=== PATIENT | female | born 1945 | race Caucasian/White ===

== ENCOUNTER → 2022-07-14 | Outpatient (CLI) | payer MEDICARE | END | disposition home or self-care (01) | LOC: LAB 11:49 → LAB SHORT 11:49 | DX: R30.9 Painful micturition, unspecified (principal) | CPT/HCPCS: 87086 ==

== ENCOUNTER 2025-09-25 06:28 | Day surgery (SDC) | payer MEDICARE ==
[~2025-09-25] VITALS: Ht 172.7 cm; Wt 62.4 kg
[~2025-09-25 06:28] MED LIST: Balanced Salt Epinephrine Irrigation Solution 500 mL IR SCH; Moxifloxacin HCL 0.5 MG/0.1 ML 0.4MLSYR LEFTEYE SCH; Ondansetron 4 MG SoluTab MM PRN; PHENYLEPHRINE\\TROPICAMIDE\\TETRACAINE OPHTHALMIC DILATING SOLN LEFTEYE PRN; Povidone-Iodine 450 DROP/30 ML Solution LEFTEYE SCH; Povidone-Iodine 450 DROP/30 ML Solution ONE; Tetracaine HCl/Pf 0.5% Opth Soln 4 ml ONE
[2025-09-25] MEDS ORDERED: ATOR10 (06:46)
[2025-09-25] MEDS ORDERED: TIMDOROPSO (06:46)
[2025-09-25] MEDS ORDERED: CALCIUM 600 MG1 EA18 (06:47)
[2025-09-25] MEDS ORDERED: LATA.005SO (06:47)
[2025-09-25] MEDS ORDERED: VITAMIN D325 MC3 (06:47)
[2025-09-25] MEDS ORDERED: Aspir 8181 MG (06:48)
[2025-09-25] MEDS ORDERED: PROBIOTIC1 EA13 (06:49)
[2025-09-25] MEDS ORDERED: MAGNESIUM (06:49)
--- NOTE | 2025-09-25 06:56 | NUR ---
09/25/25 0656 Padmini Buchanan PT STATES ANXIETY LEVEL IN PREOP IS 4/10 CALL LIGHT IN HAND PT IS ON CONTINUOUS PULSE OX MONITORING
--- NOTE | 2025-09-25 08:01 | NUR ---
09/25/25 0801 Marifer Neri 0800 BP:114/65 HR:57 O2:100% RESP:16
[2025-09-25 08:16] VITALS: BP 106/63
== END 2025-09-25 08:30 | disposition home or self-care (01) ==
LOC: ORSCSDS 06:28
PROVIDERS: Student in an Organized Health Care Education/Training Program
PROC: 08RK3JZ Replacement of Left Lens with Synthetic Substitute, Percutaneous Approach (ICD-10-PCS; principal; 2025-09-25 08:00)
DX: H25.813 Combined forms of age-related cataract, bilateral (principal); H40.1221 Low-tension glaucoma, left eye, mild stage; H40.1212 Low-tension glaucoma, right eye, moderate stage; Z86.73 Personal history of transient ischemic attack (TIA), and cerebral infarction without residual deficits; Z79.82 Long term (current) use of aspirin; Z79.899 Other long term (current) drug therapy
CPT/HCPCS: A9270; V2632

== ENCOUNTER 2025-10-02 12:25 | Day surgery (SDC) | payer MEDICARE ==
[~2025-10-02] VITALS: Ht 172.7 cm; Wt 63.2 kg
[~2025-10-02 12:25] MED LIST changes: +ATOR10; +Aspir 8181 MG; +CALCIUM 600 MG1 EA18; +LATA.005SO; +MAGNESIUM; -Moxifloxacin HCL 0.5 MG/0.1 ML 0.4MLSYR LEFTEYE SCH; +Moxifloxacin HCL 0.5 MG/0.1 ML 0.4MLSYR RIGHTEYE SCH; -PHENYLEPHRINE\\TROPICAMIDE\\TETRACAINE OPHTHALMIC DILATING SOLN LEFTEYE PRN; +PHENYLEPHRINE\\TROPICAMIDE\\TETRACAINE OPHTHALMIC DILATING SOLN RIGHTEYE PRN; +PROBIOTIC1 EA13; -Povidone-Iodine 450 DROP/30 ML Solution LEFTEYE SCH; +Povidone-Iodine 450 DROP/30 ML Solution RIGHTEYE SCH; +TIMDOROPSO; +VITAMIN D325 MC3
--- NOTE | 2025-10-02 12:48 | NUR ---
10/02/25 1248 Padmini Buchanan PT STATES ANXIETY LEVEL IS 2/10 IN PREOP PT IS ON CONTINUOUS PULSE OX CALL LIGHT IN HAND
[2025-10-02] MEDS ORDERED: Tetracaine HCl 0.5% Opth Soln 15 ml RIGHTEYE ONE (13:25)
--- NOTE | 2025-10-02 13:28 | NUR ---
10/02/25 1328 Jenise Barbour 117/70 BP 59 HR 99% 02 16 RR
[2025-10-02 13:39] VITALS: BP 122/73
== END 2025-10-02 13:50 | disposition home or self-care (01) ==
LOC: ORSCSDS 12:25
PROVIDERS: Student in an Organized Health Care Education/Training Program
PROC: 08RJ3JZ Replacement of Right Lens with Synthetic Substitute, Percutaneous Approach (ICD-10-PCS; principal; 2025-10-02 14:00)
DX: H25.811 Combined forms of age-related cataract, right eye (principal); Z96.1 Presence of intraocular lens; Z86.73 Personal history of transient ischemic attack (TIA), and cerebral infarction without residual deficits; Z79.82 Long term (current) use of aspirin; Z79.899 Other long term (current) drug therapy
CPT/HCPCS: A9270; J2003; V2632